=== PATIENT | female | born 1980 ===

== ENCOUNTER 2019-02-07 06:18 | Emergency (ER) | payer OTHER ==
[~2019-02-07] VITALS: Ht 157.5 cm; Wt 77.1 kg
[~2019-02-07 06:18] MED LIST: CLONAZEPAM0.5 MG; XANAX XR0.5 MG; ZOLOFT20 MG/ML
== END 2019-02-07 10:11 | disposition home or self-care (01) ==
LOC: ER 06:18
DX: O20.0 Threatened abortion (principal)

== ENCOUNTER 2021-06-13 09:47 | Emergency (ER) | payer OTHER ==
[~2021-06-13] VITALS: Ht 157.5 cm; Wt 82.1 kg
[2021-06-13] MEDS ORDERED: ATORVASTATIN CA20 MG PO (10:20)
[2021-06-13] MEDS ORDERED: LABETALOL HCL100 MG PO (10:20)
[2021-06-13] MEDS ORDERED: ZITHROMAX500 MG PO (13:12)
== END 2021-06-13 14:07 | disposition home or self-care (01) ==
LOC: ER 09:47
DX: B34.8 Other viral infections of unspecified site (principal); I10 Essential (primary) hypertension; E11.65 Type 2 diabetes mellitus with hyperglycemia